=== PATIENT | female | born 2005 | race African-American/Black ===

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

== ENCOUNTER 2024-02-28 02:35 | Emergency (ER) | payer OTHER ==
[~2024-02-28] VITALS: Ht 149.9 cm; Wt 43.5 kg
[2024-02-28 03:13] VITALS: PULSE 86; RESP 18; TEMP 98.3
[2024-02-28] MEDS ORDERED: NAPROSYN500 MG PO (05:31)
[2024-02-28] MEDS ORDERED: ORPHENADRINE C100 MG PO (05:31)
[2024-02-28 05:42] VITALS: BP 102/66; O2SAT 100
== END 2024-02-28 05:45 | disposition home or self-care (01) ==
LOC: ER 03:39
DX: S00.83XA Contusion of other part of head, initial encounter (principal); S16.1XXA Strain of muscle, fascia and tendon at neck level, initial encounter; R51.9 Headache, unspecified; M25.512 Pain in left shoulder; R42 Dizziness and giddiness; V43.52XA Car driver injured in collision with other type car in traffic accident, initial encounter; Y92.488 Other paved roadways as the place of occurrence of the external cause; F41.9 Anxiety disorder, unspecified; F32.A Depression, unspecified
CPT/HCPCS: 70450; 72125; 99283